=== PATIENT | female | born 1965 | race Caucasian/White ===

== ENCOUNTER → 2021-06-22 12:50 | Outpatient (CLI) | payer OTHER, SELFPAY ==
--- NOTE | 2021-06-22 12:53 | DI.MG.S_ITS ---
BILATERAL DIGITAL DIAGNOSTIC MAMMOGRAM 3D/2D: 06/22/2021 CLINICAL: Late short term follow up, due bilateral. Comparison is made to exams dated: 09/22/2020 mammogram, 07/23/2020 mammogram, 10/26/2008 mammogram - [facility], and 05/24/2004 mammogram - [facility]. There are scattered fibroglandular elements in both breasts. There is a 0.7 cm irregular equal density focal asymmetry in the left breast at 12 o'clock posterior depth. This is not significantly changed. No other significant masses, calcifications, or other findings are seen in either breast. IMPRESSION: INCOMPLETE: NEEDS ADDITIONAL IMAGING EVALUATION The 0.7 cm irregular equal density focal asymmetry in the left breast is indeterminate. An ultrasound is recommended for further evaluation and is scheduled to immediately follow this examination. This exam was interpreted at Station ID: [id number]. NOTE: For mammograms, a report in lay terms will be sent to the patient. Approximately 15% of breast malignancies will not be visualized mammographically. In the management of a palpable breast mass, a negative mammogram must not discourage biopsy of a clinically suspicious lesion. Electronically Signed By: Bob Fink M.D. aty/:06/22/2021 14:18:15 ACR BI-RADS Category 0: Incomplete [id number]
--- NOTE | 2021-06-22 12:54 | DI.US.S_ITS ---
ULTRASOUND OF LEFT BREAST: 06/22/2021 CLINICAL: Patient returns today to evaluate a focal asymmetry in the left breast. Comparison is made to exams dated: 06/22/2021 mammogram - [facility], 09/22/2020 ultrasound, 09/22/2020 mammogram, 07/23/2020 mammogram, 10/26/2008 mammogram - [facility], and 05/24/2004 mammogram - [facility]. Color flow and real-time ultrasound of the left breast were performed. Lyon scale images of the real-time examination were reviewed. There is a 0.5 cm x 0.3 cm x 0.3 cm irregular cyst in the left breast at 12 o'clock posterior depth 3 cm from the nipple. This irregular cyst is hypoechoic with internal echoes and no posterior acoustic shadowing or enhancement. This correlates smaller than estimated on mammography. Color flow imaging demonstrates that there is no vascularity present. IMPRESSION: PROBABLY BENIGN The 0.5 cm x 0.3 cm x 0.3 cm irregular cyst in the left breast resembles apocrine metaplasia or a complicated cyst and is probably benign. A follow-up left mammogram and an ultrasound in 6 months is recommended to demonstrate stability. Findings and recommendations were conveyed to the patient during today's evaluation. This exam was interpreted at Station ID: [id number]. Electronically Signed By: Bob Fink M.D. aty/:06/22/2021 14:21:43 letter sent: Followup Recommended Ultrasound BI-RADS: 3 Probably benign
== END ==
PROVIDERS: PCP Family Medicine; Referring Provider Family Medicine; Visit Provider Family Medicine
DX: R92.8 Other abnormal and inconclusive findings on diagnostic imaging of breast (principal); N60.02 Solitary cyst of left breast
CPT/HCPCS: 76642; 77066; G0279

== ENCOUNTER 2024-05-07 14:14 | Day surgery (SDC) | payer OTHER, SELFPAY ==
[2024-05-07 15:01] VITALS: BP 137/83; PULSE 98; RESP 16; TEMP 36.9; O2SAT 100
--- NOTE | 2024-05-07 15:12 | PM.HP.1 ---
History of Present Illness History of Present Illness Date Patient Seen: 05/07/24 Chief complaint: Dx Colonoscopy Narrative: First screening colonoscopy -asymptomatic. But family history of colon polyps PFSH Social History Smoking Status: Former smoker Meds Home Medications and Allergies Allergies Allergy/AdvReac Type Severity Reaction Status Date / Time penicillin G Allergy Mild HIVES Verified 05/07/24 14:55 Exam Vital Signs (past 8 hours): - 05/07/24 15:01 Temperature 98.5 F Pulse Rate 98 H Respiratory Rate 16 Blood Pressure 137/83 Pulse Oximetry 100 Oxygen Delivery Method Room Air Oxygen Delivery Method Room Air Narrative Exam Narrative: Oropharynx free of lesions Chest clear to auscultation percussion Cardiac exam reveals no S3 or murmur Assessment & Plan Assessment & Plan narrative: Need for 1st screening colonoscopy. Also family history of colon polyps. Risks, benefits, alternatives have been explained.
[2024-05-07] MEDS: LACTATED RINGERS 1,000 ML 42 ML IV (15:13)
--- NOTE | 2024-05-07 15:18 | PM.OP.COLON ---
Operative Date/Time/Diagnoses Date of procedure: 05/07/24 Procedure & Clinicians Study performed: Colonoscopy Indications: 1st screening colonoscopy Surgeon: Karsten Ellsworth Procedure Notes Procedure in detail: After informed consent was obtained the patient was placed in left lateral decubitus position. The video colonoscope was introduced the rectum slowly advanced cecum. On slow withdrawal mucosa was carefully examined. The scope was removed. The patient tolerated procedure well. Blood loss none Complications none Sedation mac Findings 1. Normal colonoscopy to cecum Patient should have follow-up colonoscopy in 10 years
[2024-05-07 15:49] VITALS: BP 92/53; PULSE 96; RESP 16; TEMP 36.6; O2SAT 96
[2024-05-07 15:53] VITALS: BP 112/69; PULSE 84; RESP 14; O2SAT 95
[2024-05-07 16:00] VITALS: BP 117/71; PULSE 81; RESP 12; O2SAT 97
== END 2024-05-07 16:17 | disposition home or self-care (01) ==
PROVIDERS: Referring Provider Internal Medicine Gastroenterology; Visit Provider Internal Medicine Gastroenterology
PROC: 0DJD8ZZ Inspection of Lower Intestinal Tract, Via Natural or Artificial Opening Endoscopic (ICD-10-PCS; CPT 45378; principal; 2024-05-07 15:00)
DX: Z12.11 Encounter for screening for malignant neoplasm of colon (principal); Z83.719 Family history of colon polyps, unspecified
CPT/HCPCS: 45378; J2704